=== PATIENT | female | born 1965 | race African-American/Black ===

== ENCOUNTER → 2017-08-10 10:18 | Outpatient (CLI) | payer OTHER ==
[2016-08-01 05:39] VITALS: BMI 33.4
[~2017-08-10 10:18] MED LIST: ATIVAN0.5 MG PO; FUROSEMIDE40 MG PO; GLIMEPIRIDE4 MG PO; GLUCOPHAGE1000 MG PO; JARDIANCE25 MG PO; LIPITOR40 MG PO; NEURONTIN 300300 MG PO; OMEPRAZOLE40 MG PO; TOUJEO SOL300 UNIT/1 SC; ULTRAM50 MG PO; ZESTORETIC 20-1 EACH PO
[2017-08-10 10:49] LABS: BASOPHILS 0.5 % (0-2); EOSINOPHILS 1.9 % (0-7); HEMATOCRIT 31.5 % (36.0-48.0); HEMOGLOBIN 10.2 g/dL (12-16); IMMATURE GRANULOCYTES 0.5 % (0-5); LYMPHOCYTES 28.2 % (15-50); MCH 29.4 pg (26.0-34.0); MCHC 32.4 g/dL (31.0-37.0); MCV 90.8 fL (80.0-100.0); MEAN PLATELET VOLUME 9.6 fL (7.4-10.4); MONOCYTES 7.6 % (2-11); NEUTROPHILS 61.3 % (40-80); PLATELET COUNT 282 10x3/uL (130-400); RBC 3.47 10x6/uL (4.00-5.40); RDW 13.3 % (11.5-14.5); WBC 7.8 10x3/uL (4.8-10.8)
[2017-08-10 11:00] LABS: ANION GAP 16.7 mmol/L (8-16); CALCIUM 9.4 mg/dL (8.5-10.1); CARBON DIOXIDE 24.6 mmol/L (21.0-32.0); CREATININE - SERUM 1.5 mg/dL (0.6-1.3); POTASSIUM - SERUM 4.3 mmol/L (3.5-5.1)
== END | disposition home or self-care (01) ==
LOC: D.LAB 08-09 13:45
PROVIDERS: Podiatrist Foot & Ankle Surgery
DX: Z01.812 Encounter for preprocedural laboratory examination (principal)